=== PATIENT | female | born 1935 | race African-American/Black ===

== ENCOUNTER 2023-07-31 16:07 | Emergency (ER) | payer OTHER ==
[2023-07-31] MEDS ORDERED: ACETAMINOPHEN 1000 MG/100 ML BAG IVPB ONE (17:00)
[2023-07-31 18:18] VITALS: BP 143/79; PULSE 91; RESP 18; TEMP 98
[2023-07-31 18:25] LABS: HEMATOCRIT 38.5 % (32.4-45.2); HEMOGLOBIN 13.3 G/dL (10.7-15.3); MCH 32.5 pg (25.7-33.7); MCHC 34.6 g/dl (32.0-36.0); MEAN CELL VOLUME 93.8 fl (80-96); MEAN PLT VOLUME 8.2 fl (7.5-11.1); PLATELET COUNT 310.7 10^3/uL (134-434); RDW 13.2 % (11.6-15.6); WHITE BLOOD COUNT 7.3 10^3/uL (4.0-10.8)
[2023-07-31 18:32] LABS: PLATELET ESTIMATE ADEQUATE
[2023-07-31 18:43] LABS: BILIRUBIN,TOTAL 0.6 mg/dl (0.2-1); POTASSIUM 4.1 mmol/L (3.5-5.1); TOT PROT 7.6 g/dl (6.4-8.2)
[2023-07-31] MEDS ORDERED: CEFTRIAXONE 1 GM in DEXTROSE 5%-WATER - 100 ML IVPB ONE (18:55)
[2023-07-31] MEDS ORDERED: cefTRIAXone SODIUM 1 GM VIAL ONE (18:56)
== END 2023-07-31 19:25 | disposition home or self-care (01) ==
LOC: FER 16:07
DX: N39.0 Urinary tract infection, site not specified (principal); R41.82 Altered mental status, unspecified
CPT/HCPCS: 36415; 71045-TC-FY; 80053; 81003; 81015; 84484; 85027; 87086; 99284-25

== ENCOUNTER 2023-09-04 14:21 | Emergency (ER) | payer OTHER ==
[2023-09-04] MEDS: SODIUM CHLORIDE 0.9% 1000 ML INFUS.BAG IV ONE (14:54)
[2023-09-04 15:07] LABS: HEMOGLOBIN 13.5 G/dL (10.7-15.3); MCH 32.4 pg (25.7-33.7); MCHC 34.6 g/dl (32.0-36.0); MEAN CELL VOLUME 93.8 fl (80-96); MEAN PLT VOLUME 8.2 fl (7.5-11.1); RBC 4.16 10^6/uL (3.60-5.2); RDW 13.6 % (11.6-15.6); WHITE BLOOD COUNT 7.5 10^3/uL (4.0-10.8)
[2023-09-04 15:33] LABS: PLATELET ESTIMATE ADEQUATE
[2023-09-04 15:41] LABS: ALBUMIN 3.9 g/dl (3.4-5.0); BILIRUBIN,TOTAL 0.6 mg/dl (0.2-1); CALCIUM 9.7 mg/dl (8.5-10.1); POTASSIUM 4.3 mmol/L (3.5-5.1)
[2023-09-04] MEDS ORDERED: cefTRIAXone SODIUM 1 GM VIAL ONE (16:20)
[2023-09-04] MEDS: CEFTRIAXONE 1 GM in DEXTROSE 5%-WATER - 100 ML IVPB ONE (16:28)
[2023-09-04 16:39] VITALS: BP 105/68; PULSE 85; RESP 16; TEMP 99; BMI 21.7
== END 2023-09-04 17:29 | disposition home or self-care (01) ==
LOC: FER 14:21
DX: N39.0 Urinary tract infection, site not specified (principal); R41.0 Disorientation, unspecified
CPT/HCPCS: 36415; 80053; 81003; 81015; 85027; 87086; 96365; 99284-25

== ENCOUNTER 2023-11-01 21:36 | Observation (INO) | payer OTHER ==
[2023-11-01 21:48] VITALS: RESP 18
[2023-11-02 01:39] LABS: HEMOGLOBIN 13.1 GM/dL (10.7-15.3); MCH 32.4 pg (25.7-33.7); MCHC 35.4 g/dl (32.0-36.0); MEAN CELL VOLUME 91.5 fl (80-96); PLATELET COUNT 260 10^3/uL (134-434); RBC 4.05 M/mm3 (3.60-5.2); RDW 12.6 % (11.6-15.6); WHITE BLOOD COUNT 7.5 K/mm3 (4.0-10.0)
[2023-11-02 01:58] LABS: POTASSIUM 3.9 mmol/L (3.5-5.1)
[2023-11-02 02:01] LABS: ALBUMIN 3.3 g/dl (3.4-5.0); BLOOD UREA NITROGEN 18.7 mg/dL (7-18); CALCIUM 9.5 mg/dL (8.5-10.1)
[2023-11-02 02:04] LABS: CREATININE 0.9 mg/dL (0.55-1.3)
[2023-11-02 02:06] LABS: BILIRUBIN,TOTAL 0.4 mg/dL (0.2-1); TOT PROT 7.1 g/dl (6.4-8.2)
[2023-11-02] MEDS ORDERED: ACETAMINOPHEN 325 MG TABLET (FP) PO PRN (02:41)
[2023-11-02] MEDS: MAGNESIUM CITRATE 300 ML BOTTLE PO ONE (04:48)
[2023-11-02 06:17] VITALS: BMI 22.5
[2023-11-02] MEDS: LACTULOSE 20 GM/30 ML UDC (FOR ORAL USE ONLY) PO SCH (08:04)
[2023-11-02] MEDS: BISACODYL 10 MG SUPP.RECT PR ONE (08:04)
[2023-11-02] MEDS: LACTATED RINGERS SOLUTION 1,000 ML/1,000 ML INFUS.BAG IV SCH (08:05)
[2023-11-02] MEDS: APIXABAN 2.5 MG TABLET PO SCH (09:51)
[2023-11-02] MEDS: INSULIN ASPART SLIDING SCALE (NOVOLOG) 1 VIAL SQ SCH (11:54)
[2023-11-02] MEDS: SODIUM PHOSPHATE/NA BIPHOS 133 ML ENEMA RC ONE (12:58)
[2023-11-02 14:40] VITALS: BP 127/72; PULSE 75; TEMP 97.9
[2023-11-02] MEDS ORDERED: LATANOPROST 0.005% OPHTH SOLN 2.5ML BOTTLE OU SCH (22:00)
[2023-11-02] MEDS ORDERED: PATIENT'S OWN MEDICATION (NON-FORMULARY) (Dorzolamide/Timolol/Pf [Dorzolamide-Timolol 2%-0 OU SCH (22:00)
[2023-11-02] MEDS ORDERED: DORZOLAMIDE 2% HCL OPHTHALMIC SOLUTION 10 ML BOTTLE OU SCH (22:00)
[2023-11-02] MEDS ORDERED: TIMOLOL 0.5% OPHTHALMIC SOL 5 ML BOTTLE OU SCH (22:00)
== END 2023-11-02 16:00 | disposition home or self-care (01) ==
LOC: FER 21:36 → INTOOBSV 11-02 02:51 → FM/S 11-02 02:51
PROVIDERS: ADMIT Internal Medicine; ATTEND Internal Medicine
PROC: 3E0337Z Introduction of Electrolytic and Water Balance Substance into Peripheral Vein, Percutaneous Approach (ICD-10-PCS; principal; 2023-11-02)
DX: K59.09 Other constipation (principal); F55.2 Abuse of laxatives; E11.9 Type 2 diabetes mellitus without complications; F03.90 Unspecified dementia, unspecified severity, without behavioral disturbance, psychotic disturbance, mood disturbance, and anxiety; Z91.199 Patient's noncompliance with other medical treatment and regimen due to unspecified reason; Z86.718 Personal history of other venous thrombosis and embolism; G62.9 Polyneuropathy, unspecified; Z79.01 Long term (current) use of anticoagulants
CPT/HCPCS: 36415; 71045-TC-FY; 74019-TC-FY; 80053; 80061; 82962; 83036; 85027; 93005; 96360; 97116-GP; 97161-GP; 99285-25; G0378

== ENCOUNTER 2024-05-03 12:39 | Emergency (ER) | payer OTHER ==
[2024-05-03 13:25] VITALS: BP 104/65; PULSE 87; RESP 20; TEMP 98.4; BMI 23.1
[2024-05-03] MEDS ORDERED: MAGNESIUM CITRATE 300 ML BOTTLE ONE (14:03)
[2024-05-03] MEDS: MAGNESIUM CITRATE 300 ML BOTTLE PO ONE (14:04)
== END 2024-05-03 15:28 | disposition home or self-care (01) ==
LOC: FER 12:39
DX: N39.0 Urinary tract infection, site not specified (principal); K59.00 Constipation, unspecified
CPT/HCPCS: 81003; 81015; 87086; 99283-25